=== PATIENT | female | born 1980 | race Caucasian/White ===

== ENCOUNTER 2018-03-30 05:54 | Day surgery (SDC) | payer BC ==
[~2018-03-30] VITALS: Ht 162.6 cm; Wt 66.1 kg
[~2018-03-30 05:54] MED LIST: AMBIEN 10MG10 MG PO; ANUSOL-HC SUPPO25 MG RC; BYSTOLIC5 MG PO; HYGROTON25 MG PO; NORCO 325 MG-51 TAB PO; ORTHO TRI-CYCLE1 TAB PO; PERCOCET 325 MG1 TA2 PO; PRIL40; TRANDATE 100MG100 MG PO; ZOFRAN 4MG T4 MG/TAB PO; ZYRTEC ALLERGY10 MG PO
[2018-03-30] MEDS ORDERED: XANAX 1MG1 MG PO (06:38)
[2018-03-30] MEDS ORDERED: INDERAL40 MG PO (06:40)
[2018-03-30] MEDS ORDERED: T-3 PO (06:40)
[2018-03-30] MEDS ORDERED: PROGESTERONE TD (06:43)
[2018-03-30] MEDS ORDERED: PROTONIX 40MG T40 MG PO (06:43)
[2018-03-30] MEDS ORDERED: MAGNESIUM GLUC500 MG PO (06:44)
[2018-03-30] MEDS ORDERED: DHEA 50 MG TAB1 EACH PO (06:45)
[2018-03-30] MEDS ORDERED: PROFERRIN ES12 MG PO (06:45)
[2018-03-30] MEDS ORDERED: THYROID SUPPORT (06:47)
[2018-03-30] MEDS ORDERED: [UNRECOGNIZED DRUG - OTHER] (06:47)
[2018-03-30 06:52] VITALS: BP 153/102; PULSE 64; TEMP 97.7
[2018-03-30 10:45] VITALS: BP 143/81; PULSE 68; TEMP 97.2
[2018-03-30 11:00] VITALS: BP 155/73; PULSE 68
[2018-03-30 11:15] VITALS: BP 143/92; PULSE 75
[2018-03-30 11:30] VITALS: BP 147/83; PULSE 70
[2018-03-30 11:46] VITALS: BP 143/81; PULSE 69; TEMP 97.2
== END 2018-03-30 12:03 | disposition home or self-care (01) ==
LOC: SDCO 05:54
DX: K40.20 Bilateral inguinal hernia, without obstruction or gangrene, not specified as recurrent (principal); I10 Essential (primary) hypertension; E03.9 Hypothyroidism, unspecified; Z79.899 Other long term (current) drug therapy; F41.9 Anxiety disorder, unspecified; R00.2 Palpitations
CPT/HCPCS: C1781; J0690; J1100; J1885; J2405; J2704; J2710; J3010; J7120